=== PATIENT | female | born 1985 | race Caucasian/White ===

== ENCOUNTER 2025-02-25 12:02 | Emergency (ER) | payer MEDICAID, SELFPAY ==
[2025-02-25 12:02] VITALS: BP 129/88; PULSE 99; RESP 18; TEMP 36.2; O2SAT 98; BMI 32.8
--- NOTE | 2025-02-25 12:18 | EDS_ITS ---
HPI <ZAKIYA Salazar - Last Filed: 02/25/25 13:45> History of Present Illness Chief Complaint: Headache Narrative Narrative: 39-year-old female with past medical history of hypertension presents with a headache. 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 She states she had a mild headache last night at work which resolved with Tylenol. She felt fine when she woke up this morning then while working developed a gradual onset right-sided headache. It felt like it was behind her right eye when it started and is now aching in the right occipital area. She also started feel nauseated and hot and flushed. She did not take any medication today. She denies vomiting. No visual or speech changes or focal motor or sensory changes. She states she has had headaches in the past from her high blood pressure and was started on amlodipine 6 months ago but does not take it consistently. She took it 2 days ago. She was concerned maybe her blood pressure was elevated prompting her to come in. PFSH <ZAKIYA Salazar Last Filed: 02/25/25 13:45> PFSH Allergy/AdvReac Type Severity Reaction Status Date / Time No Known Allergies Allergy Verified 02/25/25 12:03 Social History Smoking Status: Never smoker ROS <ZAKIYA Salazar Last Filed: 02/25/25 13:45> ROS ED ROS Narrative Constitutional: Negative for fever, chills, malaise. Eyes: Negative for visual change. GI: Positive for nausea, no vomiting. Neuro: Positive for headaches. EXAM <ZAKIYA Salazar Last Filed: 02/25/25 13:45> Physical Exam Narrative Exam Narrative: CONST: Patient sitting in no acute distress. EYES: Normal inspection. PERRL, EOMI. ENT: Normal inspection, moist mucous membranes. NECK: Normal inspection. RESP: No respiratory distress, CTAB. CVS: Regular rate and rhythm, no murmur, no gallop. SKIN: Color normal, no rash, warm, dry, intact. EXTREMITIES: Normal appearance, no pedal edema. NEURO: Alert and answering questions appropriately. Face symmetric, no upper or lower extremity drift, normal finger-nose bilaterally. PSYCH: Normal affect. Const Vital Signs: 02/25/25 12:02 02/25/25 13:47 Temperature 97.1 F L 97.8 F Temperature Source Temporal Pulse Rate 99 78 Respiratory Rate 18 15 Blood Pressure 129/88 H 138/96 H Blood Pressure Mean 101 110 Pulse Ox 98 100 Oxygen Delivery Method Room Air <Dr. Brodie Kwong, - Last Filed: 02/25/25 15:16> Physical Exam Const Vital Signs: 02/25/25 12:02 02/25/25 13:47 Temperature 97.1 F L 97.8 F Temperature Source Temporal Pulse Rate 99 78 Respiratory Rate 18 15 Blood Pressure 129/88 H 138/96 H Blood Pressure Mean 101 110 Pulse Ox 98 100 Oxygen Delivery Method Room Air MDM <ZAKIYA Salazar - Last Filed: 02/25/25 13:45> [facility] MDM Narrative Medical decision making narrative: Differential includes but not limited to tension headache, migraine, intracranial process, high blood pressure 39-year-old female with gradual onset right-sided headache with nausea and light sensitivity. She has a history of headaches in the past due to high blood pressure. She is lying in bed in no distress with the lights dimmed. Vitals are stable with well-controlled blood pressure at 129/88. She has a normal neurological exam. She has no systemic signs or symptoms of illness and no meningismus and not concern for meningitis. Since she has a normal neurological exam I do not think CT head imaging is indicated. She was given IM Toradol and Zofran and after observation is feeling improved and comfortable going home. Return precautions discussed. She was discharged in stable condition. <Dr. Brodie Kwong, - Last Filed: 02/25/25 15:16> [facility] Treatment and Re-Evaluation :: I have personally performed a face to face assessment of the patient and have reviewed the HENRIK Note. I performed a substantive portion of the visit including all aspects of the following. My chavez findings include: History: Patient presents with a headache that began approximate 1 hour prior to arrival. Patient states it began rather suddenly. Patient states it is over the frontal area. Patient states it is now becoming more generalized. Patient states she has had similar headaches with elevated blood pressure in the past. Patient describes her pain as dull and throbbing. Patient states nothing makes it better and nothing makes it worse. Patient states that she was having difficulty keeping her eyes open due to the bright lights. Patient also admits to some blurred vision and some nausea. Patient denies any vomiting. Patient denies any fevers or chills. Exam: Vital signs are stable. Patient is afebrile. Patient is in no acute distress. Cranial nerves II through XII are intact. Strength is 5/5 bilaterally in upper and lower extremities. There are no sensory deficits noted. There is full range of motion of the cervical spine. There is no pain with flexion of the neck. Heart was regular rate and rhythm. Lungs are clear and equal bilaterally. Abdomen is soft. Bowel sounds are normal. There is no tenderness. Medical Decision Making: Differential diagnosis includes migraine headache, hypertension, and tension headache. Patient was given injection of Toradol. Patient was given a dose of Zofran. Patient was feeling better on reevaluation. Patient was instructed to drink plenty fluids. Patient was instructed to take Tylenol or ibuprofen as needed for pain. Patient was instructed return if worse in any way. Patient understood and was agreeable with the plan. All questions were answered. Discharge Plan Triage Chief Complaint: Headache ED Midlevel Provider: Lindy Samuels ED Provider: Brodie Kwong Dx/Rx/DC Orders Clinical Impression: Headache Instructions: Self-Care for Headaches Stand Alone Forms: ED Work / School Excuse Primary Care Provider: Denys Fatima Referrals: Denys Fatima [Other] Activity Restrictions/Additional Instructions: You can alternate Tylenol and Motrin every 3 hours as needed for headache. If your headache severely worsens come back to the ER. Otherwise I would recommend following up with your primary care doctor and taking a blood pressure medication every day as prescribed. Print Language: Yakut Disposition Disposition: Home, Self Care Discharge Date/Time: 02/25/25 13:47
[2025-02-25] MEDS: Ketorolac 30 MG/ML Syringe IM (12:56)
[2025-02-25 13:47] VITALS: BP 138/96; PULSE 78; RESP 15; TEMP 36.6; O2SAT 100
== END 2025-02-25 13:47 | disposition home or self-care (01) ==
PROVIDERS: Emergency Provider Emergency Medicine; Visit Provider Emergency Medicine
DX: R51.9 Headache, unspecified (principal); R11.0 Nausea; I10 Essential (primary) hypertension
CPT/HCPCS: 96372; 99283; A4216